=== PATIENT | female | born 1995 | race Caucasian/White ===

== ENCOUNTER → 2016-10-21 | Outpatient (CLI) | payer SELFPAY | LOC: RAD 10:57 | PROVIDERS: ATTEND Nurse Practitioner Women's Health | DX: Z34.81 Encounter for supervision of other normal pregnancy, first trimester (principal) | CPT/HCPCS: 76801 ==

== ENCOUNTER 2017-05-26 01:36 | Inpatient (IN) | payer MEDICAID ==
[2017-05-26] MEDS ORDERED: RINGERS SOLUTION,LACTATED 1,000 ML IV ONE (01:39)
[2017-05-26] MEDS ORDERED: ZOLPIDEM TARTRATE 5 MG TABLET PO PRN ×2 (02:02→16:42)
[2017-05-26] MEDS ORDERED: ACETAMINOPHEN 325 MG TABLET PO PRN ×2 (02:02→16:42)
[2017-05-26] MEDS ORDERED: DINOPROSTONE 10 MG VAGINAL INSERT.SR PV ONE ×2 (02:02→16:42)
[2017-05-26 02:15] LABS: ABSOLUTE LYMPHOCYTES (AUTO) 2.3 10^3/uL (0.5-4.7); ABSOLUTE MONOCYTES (AUTO) 0.4 10^3/uL (0.1-1.4); ABSOLUTE NEUT (AUTO) 5.6 10^3/uL (1.7-8.2); BASOPHILS % (AUTO) 0.2 % (0-2); EOSINOPHILS % (AUTO) 0.4 % (0-6); HEMATOCRIT 30.1 % (36.0-47.0); HEMOGLOBIN 10.8 g/dL (12.0-15.5); HGB HCT DIFFERENCE 2.3; LYMPHOCYTES % (AUTO) 27.5 % (13-45); MEAN CORPUSCULAR HEMOGLOBIN 31.8 pg (27.0-33.4); MEAN CORPUSCULAR VOLUME 88 fl (80-97); MONOCYTES % (AUTO) 5.2 % (3-13); RED BLOOD COUNT 3.41 10^6/uL (3.72-5.28); RED CELL DISTRIBUTION WIDTH 13.8 % (11.5-14.0); SEGMENTED NEUTROPHILS % (AUTO) 66.7 % (42-78); WHITE BLOOD COUNT 8.4 10^3/uL (4.0-10.5)
[2017-05-26 02:18] LABS: APPEARANCE,URINE CLOUDY; BILIRUBIN,URINE NEGATIVE (NEGATIVE); GLUCOSE, URINE NEGATIVE (NEGATIVE); KETONES,URINE NEGATIVE (NEGATIVE); LEUKOCYTE ESTERASE,URINE NEGATIVE (NEGATIVE); NITRITE,URINE NEGATIVE (NEGATIVE); PROTEIN,URINE NEGATIVE (NEGATIVE); UROBILINOGEN,URINE NEGATIVE mg/dL (<2.0)
[2017-05-26 02:32] LABS: URINE BARBITURATES SCREEN NEGATIVE; URINE METHADONE SCREEN NEGATIVE; URINE OPIATES LOW NEGATIVE; URINE PHENCYCLIDINE SCREEN NEGATIVE
[2017-05-26] MEDS ORDERED: DINOPROSTONE 10 MG VAGINAL INSERT.SR ONE ×2 (02:59→21:17)
[2017-05-26] MEDS: RINGERS SOLUTION,LACTATED 1,000 ML IV PRN ×2 (03:04→21:20)
[2017-05-26] MEDS ORDERED: ACETAMINOPHEN 325 MG TABLET ONE (03:09)
[2017-05-26] MEDS: MAG HYDROX/AL HYDROX/SIMETH SUSP 30 ML UDCUP PO PRN ×2 (03:12→21:19)
[2017-05-26] MEDS ORDERED: MAG HYDROX/AL HYDROX/SIMETH SUSP 30 ML UDCUP ONE ×2 (03:15→21:18)
--- NOTE | 2017-05-26 12:43 | L&D Progress Notes ---
PROGRESS NOTES Datetime Report Generated by CPN: 05/26/2017 12:43 PROGRESS NOTE Impression: Reassuring Heart Rate Plan: Continue Present Management; Induction; Cervical Ripening Vital Signs : Reviewed; Within Normal Limits Comment: Cat 1 strip, uc's q 2-3 min x 50-60 sec, doing well, starting to feel cramping, cervidil out at 3 DrYanni Campos aware of status VAGINAL EXAM Dilatation: 0 Effacement: 0 Station: -3 MEMBRANES Pooling: Negative Membranes: Intact FETUS A FHR - Baseline: 155 Variability: Moderate 6-25bpm Accelerations: 15X15 Decelerations: None FHR Category: Category I : 41.3 Estimated Weight (gm): 4000 Presentation: Vertex SIGNATURE SIGNATURE: [id number] Assignment: Quinton Campos MD Signature: with User ID: [email or web address] : with User ID: [email or web address]
--- NOTE | 2017-05-26 14:22 | L&D Progress Notes ---
PROGRESS NOTES Datetime Report Generated by CPN: 05/26/2017 14:22 PROGRESS NOTE Impression: Reassuring Heart Rate Plan: Continue Present Management Vital Signs : Reviewed; Within Normal Limits Comment: pt comfortable, irreg uc's, Cat 1 strip FETUS A Monitoring: External US Decelerations: None : 41.3 FETUS C SIGNATURE: [id number] Assignment: Quinton Campos MD Signature: with User ID: [email or web address] : with User ID: [email or web address]
[2017-05-26] MEDS ORDERED: OXYTOCIN/NORMAL SALINE 20 UNIT/1,000 ML RTUINJ IV PRN (16:42)
[2017-05-26] MEDS ORDERED: MAG HYDROX/AL HYDROX/SIMETH SUSP 30 ML UDCUP PO PRN (16:42)
[2017-05-27] MEDS ORDERED: ZOLPIDEM TARTRATE 5 MG TABLET ONE (00:35)
[2017-05-27] MEDS ORDERED: ONDANSETRON 4 MG TAB.RAPDIS PO ONE (09:01)
[2017-05-27] MEDS ORDERED: NALBUPHINE HCL INJ 10 MG/1 ML AMPULE IV ONE (09:12)
[2017-05-27] MEDS ORDERED: NALBUPHINE HCL INJ 10 MG/1 ML AMPULE ONE (09:17)
--- NOTE | 2017-05-27 09:36 | L&D Progress Notes ---
PROGRESS NOTES Datetime Report Generated by CPN: 05/27/2017 09:35 PROGRESS NOTE Procedures- Other: hughes bulb mechanical dilation Plan Other: low dose pit/mechanical dilation Vital Signs : Reviewed Comment: Hughes bulb introduced through cervix and filled with 40 cc saline. Placed to weighted saline bag. Will start pit at 2 mu until hughes bulb expelled. FETUS A FHR Category: Category I FETUS C SIGNATURE: [id number] Signature: with User ID: [email or web address]
[2017-05-27] MEDS ORDERED: OXYTOCIN/NORMAL SALINE 20 UNIT/1,000 ML RTUINJ IV PRN (09:41)
[2017-05-27] MEDS ORDERED: OXYTOCIN/NORMAL SALINE 20 UNIT/1,000 ML RTUINJ ONE (09:46)
[2017-05-27] MEDS ORDERED: ONDANSETRON 4 MG TAB.RAPDIS ONE (09:59)
[2017-05-27] MEDS ORDERED: EPHEDRINE SULFATE INJ 50 MG/1 ML AMPULE ONE (16:52)
[2017-05-27] MEDS ORDERED: BUPIVACAINE HCL 0.25 % INJ/PF (2.5 MG/1 ML) 30 ML VIAL ONE (16:53)
[2017-05-27] MEDS ORDERED: FENTANYL/BUPIVACAINE/NS/PF 200 MCG/100 ML RTUINJ EPI ONE (16:53)
--- NOTE | 2017-05-27 18:37 | L&D Progress Notes ---
PROGRESS NOTES Datetime Report Generated by CPN: 05/27/2017 18:37 PROGRESS NOTE Procedures: Artificial ROM Plan: Induction Informed Consent Obtained: Vaginal Delivery; Section Delivery Comment: Pt had some lates after epidural which resolved with ephedrine, d/c pit, and oxygen. AROM-thick mec...will resume pit if not having adequate ctxs. FETUS C SIGNATURE: [id number] Signature: with User ID: [email or web address]
[2017-05-27] MEDS ORDERED: LANSOPRAZOLE 30 MG TAB.RAP.DR ONE (19:05)
--- NOTE | 2017-05-27 23:22 | L&D Progress Notes ---
PROGRESS NOTES Datetime Report Generated by CPN: 05/27/2017 23:22 PROGRESS NOTE Procedures: Sterile Vag Exam Plan: Induction Comment: some caput noted. cont pit induction..pt comfortable with epidural. FETUS A FHR Category: Category I FETUS C SIGNATURE: [id number] Signature: with User ID: [email or web address]
[2017-05-28] MEDS ORDERED: FENTANYL/BUPIVACAINE/NS/PF 200 MCG/100 ML RTUINJ EPI ONE ×2 (01:47→08:51)
[2017-05-28] MEDS ORDERED: ACETAMINOPHEN 325 MG TABLET PO PRN (03:36)
[2017-05-28] MEDS ORDERED: ACETAMINOPHEN 325 MG TABLET ONE ×2 (03:42→11:05)
--- NOTE | 2017-05-28 05:51 | L&D Progress Notes ---
PROGRESS NOTES Datetime Report Generated by CPN: 05/28/2017 05:50 PROGRESS NOTE Procedures: Intrauterine Pressure Catheter Plan: Induction Comment: large amt of caput. Few variables on FHR tracing but good variablity ...cont induction guided by mvus. VAGINAL EXAM Dilatation: 7 Effacement: 100 Station: 0 FETUS C SIGNATURE: [id number] Signature: with User ID: [email or web address]
[2017-05-28] MEDS ORDERED: LIDOCAINE 1% INJ-PF (10 MG/ML) 30 ML SDV ONE (08:43)
[2017-05-28] MEDS ORDERED: MISOPROSTOL 0.2 MG TABLET ONE (08:43)
[2017-05-28] MEDS ORDERED: ACETAMINOPHEN 325 MG TABLET PO ONE (11:00)
[2017-05-28] MEDS ORDERED: OXYTOCIN/NORMAL SALINE 20 UNIT/1,000 ML RTUINJ ONE ×2 (11:25→13:14)
[2017-05-28] MEDS ORDERED: METHYLERGONOVINE MALEATE INJ/PF 0.2 MG/1 ML AMPULE ONE (12:20)
[2017-05-28] MEDS ORDERED: DIPH/PERTUSS(ACELL)/TETANUS VAC/PF 0.5 ML SYR (>=10YO) IM PRN (12:41)
[2017-05-28] MEDS ORDERED: DIPHENHYDRAMINE HCL 25 MG CAPSULE PO PRN (12:41)
[2017-05-28] MEDS ORDERED: PSEUDOEPHEDRINE HCL 30 MG TABLET PO PRN (12:41)
[2017-05-28] MEDS ORDERED: PROMETHAZINE HCL 25 MG SUPP.RECT PR PRN (12:41)
[2017-05-28] MEDS ORDERED: NA PHOS,M-B/NA PHOS,DI-BA (ADULT) 133 ML ENEMA PR PRN (12:41)
[2017-05-28] MEDS ORDERED: METHYLERGONOVINE MALEATE INJ/PF 0.2 MG/1 ML AMPULE IM PRN (12:41)
[2017-05-28] MEDS ORDERED: GLYCERIN/WITCH HAZEL LEAF 1 EACH MED..PAD TP PRN (12:41)
[2017-05-28] MEDS ORDERED: MAGNESIUM HYDROXIDE SUSP 30 ML UDCUP PO PRN (12:41)
[2017-05-28] MEDS ORDERED: MISOPROSTOL 0.2 MG TABLET PR PRN (12:41)
[2017-05-28] MEDS ORDERED: DIBUCAINE 1% OINTMENT 28 GM TP PRN (12:41)
[2017-05-28] MEDS ORDERED: ACETAMINOPHEN 650 MG SUPP.RECT PR PRN (12:41)
[2017-05-28] MEDS ORDERED: OXYTOCIN/NORMAL SALINE 20 UNIT/1,000 ML RTUINJ IV PRN (12:41)
[2017-05-28] MEDS ORDERED: PROMETHAZINE HCL INJ 25 MG/1 ML VIAL IV PRN (12:41)
[2017-05-28] MEDS ORDERED: PROMETHAZINE HCL 25 MG TABLET PO PRN (12:41)
[2017-05-28] MEDS ORDERED: ACETAMINOPHEN WITH CODEINE #3 TABLET PO PRN ×2 (12:41)
[2017-05-28] MEDS ORDERED: BENZOCAINE/MENTHOL AEROSOL SPRAY 56 ML TOP PRN (12:41)
[2017-05-28] MEDS ORDERED: MEASLES,MUMPS&RUBELLA VACC/PF 0.5 ML VIAL SUBCUT PRN (12:41)
[2017-05-28] MEDS ORDERED: OXYCODONE HCL IR 5 MG TABLET PO ONE (12:44)
[2017-05-28] MEDS ORDERED: CEFAZOLIN 2 GM/D5W RTU 2 GM/50 ML RTUPB IV SCH (12:45)
[2017-05-28] MEDS ORDERED: OXYCODONE HCL IR 5 MG TABLET ONE (12:46)
[2017-05-28] MEDS ORDERED: ONDANSETRON 4 MG TAB.RAPDIS PO ONE (12:47)
[2017-05-28] MEDS ORDERED: CEFAZOLIN 2 GM/D5W RTU 2 GM/50 ML RTUPB IV ONE ×2 (12:47→12:51)
[2017-05-28] MEDS ORDERED: ONDANSETRON 4 MG TAB.RAPDIS ONE (12:49)
[2017-05-28 12:57] LABS: ARTERIAL BLOOD BASE EXCESS -8.8 mmol/L; ARTERIAL BLOOD O2 SATURATION 67.7 % (94-98)
[2017-05-28] MEDS ORDERED: NALBUPHINE HCL INJ 10 MG/1 ML AMPULE INJ ONE (13:04)
[2017-05-28] MEDS ORDERED: NALBUPHINE HCL INJ 10 MG/1 ML AMPULE ONE (13:10)
[2017-05-28] MEDS ORDERED: HYDROCODONE/ACETAMINOPHEN 10-325 MG TABLET PO ONE (13:30)
[2017-05-28] MEDS ORDERED: MORPHINE SULFATE 10 MG/ML INJ IV ONE (13:44)
[2017-05-28] MEDS ORDERED: MORPHINE SULFATE 10 MG/ML INJ ONE (13:51)
[2017-05-28 13:59] LABS: HEMATOCRIT 29.1 % (36.0-47.0); HEMOGLOBIN 10.3 g/dL (12.0-15.5); HGB HCT DIFFERENCE 1.8; MEAN CORPUSCULAR HEMOGLOBIN 31.5 pg (27.0-33.4); MEAN CORPUSCULAR HGB CONC 35.3 g/dL (32.0-36.0); MEAN CORPUSCULAR VOLUME 89 fl (80-97); RED BLOOD COUNT 3.27 10^6/uL (3.72-5.28); RED CELL DISTRIBUTION WIDTH 13.7 % (11.5-14.0)
[2017-05-28 14:01] LABS: WHITE BLOOD COUNT 21.7 10^3/uL (4.0-10.5)
[2017-05-28] MEDS: IBUPROFEN 800 MG TABLET PO SCH ×2 (14:42→21:08)
[2017-05-28] MEDS ORDERED: IBUPROFEN 800 MG TABLET ONE (14:45)
--- NOTE | 2017-05-28 14:51 | Delivery Summary ---
Del Sum A-C Datetime Report Generated by CPN: 05/28/2017 14:50 DELIVERY PERSONNEL DELIVERY PERSONNEL: [id number] Delivery Doctor:: Soila Myers CNM Labor and Delivery Nurse:: Indigo Velasquez RNrevenue cycle specialist Nurse:: Anabella Quintero RN Humanities Professor:: Indigo Velasquez RN Nursery Nurse:: Kenzie Shin RN Nursery Nurse:: Mikki Medina RN Mission Commander/PORCELAIN ENAMEL REPAIRER: Sylvia Gil, [place] Mission Commander/PORCELAIN ENAMEL REPAIRER: Jeff Luis, ST MATERNAL INFORMATION Delivery Anesthesia: Epidural Medications After Delivery: Pitocin Bolus-Please Comment Meds After Delivery Comment: Pitocin 20 units in 1 L NS bolusing per order Estimated Blood Loss (ml): 400 Maternal Complications: Chorioamnionitis Provider Comments: pt pushing, on perineum for a extended period, HR down ML epis made, viable female from OA to TILA over thick meconium, nuchal cord x 1 loose and loop of occult cord around neck, placed on mothers abd, nursery in attendance, suctioned Spont delivery of small meconium stained placenta, 3 vc, EBL 400cc, temp 100, stromg foul odor, + chorio Cytotec 1000mcg via rectum, Methergine 0.2 mg IM, massage, IV Pitocin Rt labial lac and ML epis repaired without difficulty, cervix intact, rectum patent will give mother Ancef 2 gms IV x 1 Placenta cultured x 2, cord gases and placenta to path, baby and mom remain in recovery in stable condition (Annotations: Data stored by CPN on behalf of user) LABOR SUMMARY EDC: 05/16/2017 00:00 No. Babies in Womb: 1 Attempted: No Labor Anesthesia: Epidural LABOR INFORMATION Reason for Induction: Post Dates Onset of Labor: 05/27/2017 18:30 Complete Dilatation: 05/28/2017 10:01 Cervical Ripening Agents: Cervidil Oxytocin: Induction Group B Beta Strep: Negative Antibiotics # of Doses: 0 Antibiotics Time of Last Dose: n/a Name of Antibiotic Given: n/a Steroids Given: None Reason Steroids Not Administered: Not Applicable MEMBRANES Membranes Rupture Method: Artificial Rupture of Membranes: 05/27/2017 18:30 Length of Rupture (hr): 17.55 Amniotic Fluid Color: Heavy Meconium Amniotic Fluid Amount: Small Amniotic Fluid Odor: Normal STAGES OF LABOR Stage 1 hr: 15 Stage 1 min: 31 Stage 2 hr: 2 Stage 2 min: 2 Stage 3 hr: 0 Stage 3 min: 9 Total Time in Labor hr: 17 Total Time in Labor min: 42 VAGINAL DELIVERY Episiotomy: Median Laceration Extension: First Degree Laceration Type: Periurethral Other Laceration: Right periurethral Laceration Repair: Yes Laceration Repair Note: lac and epis repaired in normal fashion without difficulty Sponge Count Correct: N/A Sharps Count Correct: N/A CSECTION DELIVERY Primary Indication: N/A Secondary Indication: N/A CSection Incidence: N/A Labor: N/A Elective: N/A CSection Incision: N/A BABY A INFORMATION Delivery Date/Time: 05/28/2017 12:03 Method of Delivery: Vaginal Born in Route : No : N/A Forceps: N/A Vacuum Extraction: N/A Shoulder Dystocia : No PRESENTATION/POSITION BABY A Presentation: Cephalic Cephalic Presentation: Vertex Vertex Position: Left Occipital Anterior Breech Presentation: N/A PLACENTA INFORMATION BABY A Placenta Delivery Time : 05/28/2017 12:12 Placenta Method of Delivery: Spontaneous Placenta Status: Delivered SCORES BABY A Heart Rate 1 min: >100 bpm Resp Effort 1 min: Good Cry Reflex Irritability 1 min: Cough or Sneeze or Pulls Away Muscle Tone 1 min: Some Flexion of Extremities Color 1 min: Blue/Pale Resuscitation Effort 1 min: Tactile Stimulation SCORE 1 MIN: 7 Heart Rate 5 min: >100 bpm Resp Effort 5 min: Good Cry Reflex Irritability 5 min: Cough or Sneeze or Pulls Away Muscle Tone 5 min: Active Motion Color 5 min: Body [place], Extremities Blue Resuscitation Effort 5 min: Tactile Stimulation SCORE 5 MIN: 9 INFANT INFORMATION BABY A Gestational Age at Delivery: 41.5 Gestational Status: Late Term- 41- 41.6 Weeks Infant Outcome : Liveborn Infant Condition : Stable Sex: Female IDENTIFICATION BABY A Infant Verification Date/Time: 05/28/2017 12:41 ID Band Number: [id number] Mother's Name Verified: Yes Infant RN Verifying Infant: Anibal Irwin RNC Additional Verifying Personnel: Juan English RN WEIGHT/LENGTH BABY A Infant Birthweight (gm): 2880 Infant Weight (lb): 6 Weight (oz): 6 Length (in): 20.75 Length (cm): 52.71 CORD INFORMATION BABY A No. Cord Vessels: 3 Nuchal Cord : Around Neck x1, Loose Cord Blood Taken: Yes-For Eval (Mom's Blood Type - or O+) Suction: Mouth; Nose ASSESSMENT BABY A Complications: Decreased Variability; Extended Tachycardia; Multiple Late Decels; Multiple Variable Decels; Meconium Physical Findings at Delivery: Caput Succedaneum; Molding of the Head Infant Respirations: Appears Normal Skin to Skin: Yes Landscape Architect/ALS Called : No Care By: Leonila Betancourt RN Transferred To: Remains with Mother BABY B INFORMATION : N/A
--- NOTE | 2017-05-28 15:58 | Admission Physical ---
Datetime Report Generated by CPN: 05/28/2017 15:57 CURRENT ADMISSION Chief Complaint: Scheduled Induction of Labor Indication for Induction: Post Dates Admit Plan: Admit to Unit; Initiate Labor Induction Protocol ALLERGIES Medication Allergies: No Medication Allergies: No Known Allergies (05/26/2017) Medication Allergies: No Known Allergies (07/12/2014) Latex: No Latex Allergies Food Allergies: None Environmental Allergies: None OBSTETRICAL HISTORY EDC: 05/16/2017 00:00 : 2 Para: 0 Term: 0 : 0 SAB: 1 IAB: 0 Ectopic: 0 Livin Cesareans: 0 VBACs: 0 Multiple Births: 0 Gestational Diabetes: No Rh Sensitization: No Incompetent Cervix: No LUIS ARMANDO: No Infertility: No ART Treatment: No Uterine Anomaly: No IUGR: No Hx Previous C/S: No Macrosomia: No Hx Loss/Stillborn: No PIH: No Hx : No Placenta Previa/Abruption: No Depression/PP Depression: No PTL/PROM: No Post Hemorrhage: No Obstetrical History Comments: G1- miscarriage G2: Current SEE RECORDS Alcohol: No Marijuana : No Cocaine: No Other Illicit Drugs: No Cigarettes: Never Smoker. [id number] MEDICAL HISTORY Diabetes: No Blood Transfusion: No Pulmonary Disease (Asthma, TB): No Breast Disease: No Hypertension: No Dyer Assistant Surgery: No Heart Disease: No Hosp/Surgery: No Autoimmune Disorder: No Anesthetic Complications: No Kidney Disease: No Abnormal Pap Smear: Yes Neuro/Epilepsy: No Psychiatric Disorders: Yes Other Medical Diseases: No Hepatitis/Liver Disease: No Significant Family History: No Varicosities/Phlebitis: No Trauma/Violence : No Thyroid Dysfunction: No Medical History Comments: anxiety; ASCUS pap +HPV INFECTIOUS HISTORY Gonorrhea: No Genital Herpes: No Chlamydia: Yes Tuberculosis: No Syphilis: No Hepatitis: No HIV/AIDS Exposure: No Rash or Viral Illness: No HPV: No Infectious History Comments: Hx of chlamydia PHYSICAL EXAM General: Normal HEENT: Normal Neurologic: Normal Thyroid: Normal Heart: Normal Lungs: Normal Breast: Normal Back: Normal Abdomen: Normal Genitourinary Exam: Normal Extremities: Normal DTRs: Normal Pelvic Type: Adequate Vital Signs: Reviewed VAGINAL EXAM Dilatation: 7 Dilatation: 0 Effacement: 100 Effacement: 0 Station: 0 Station: -3 MEMBRANES Pooling: Negative Membranes: Intact FETUS A EGA: 41.3 Monitoring: External US FHR- Baseline: 130 Variability: Moderate 6-25bpm Accelerations: 15X15 Decelerations: None FHR Category: Category I Estimated Weight (gm): 4000 Presentation: Vertex PLANS FOR LABOR AND DELIVERY Labor and Delivery: None Pain Management: Epidural Feeding Preference: Breast Benefit of Breast Feed Discussed: Yes Circumcision: N/A INFORMED CONSENT Informed Consent Obtained: Vaginal Delivery; Section Delivery Signature: with User ID: [email or web address]
[2017-05-28] MEDS: FERROUS SULFATE 325 MG TABLET PO SCH (17:22)
[2017-05-28] MEDS: DOCUSATE SODIUM 100 MG CAPSULE PO SCH (17:23)
[2017-05-28] MEDS: CEFAZOLIN 2 GM/D5W RTU 2 GM/50 ML RTUPB IV SCH ×2 (17:24→23:29)
[2017-05-28] MEDS: CEPHALEXIN 500 MG CAPSULE PO SCH (21:09)
[2017-05-28] MEDS: FAMOTIDINE 20 MG TABLET PO SCH (21:09)
[2017-05-28] MEDS: METHYLERGONOVINE MALEATE 0.2 MG TABLET PO SCH (21:09)
[2017-05-29] MEDS: METHYLERGONOVINE MALEATE 0.2 MG TABLET PO SCH ×3 (02:14→16:38)
[2017-05-29] MEDS: CEFAZOLIN 2 GM/D5W RTU 2 GM/50 ML RTUPB IV SCH ×4 (05:54→23:54)
[2017-05-29] MEDS: CEPHALEXIN 500 MG CAPSULE PO SCH ×3 (05:54→21:14)
[2017-05-29] MEDS: IBUPROFEN 800 MG TABLET PO SCH ×3 (05:54→21:13)
[2017-05-29 07:40] LABS: HEMOGLOBIN 8.6 g/dL (12.0-15.5); HGB HCT DIFFERENCE 1.8; MEAN CORPUSCULAR HEMOGLOBIN 32.2 pg (27.0-33.4); MEAN CORPUSCULAR HGB CONC 35.9 g/dL (32.0-36.0); MEAN CORPUSCULAR VOLUME 90 fl (80-97); RED BLOOD COUNT 2.68 10^6/uL (3.72-5.28); RED CELL DISTRIBUTION WIDTH 14.2 % (11.5-14.0); WHITE BLOOD COUNT 10.9 10^3/uL (4.0-10.5)
--- NOTE | 2017-05-29 08:49 | PDOC PROGRESS REPORT ---
Subjective-OB Subjective: Post Delivery Day: 1 22 year old. Denies any needs at this time, states lochia is stable, pain is well controlled, voiding without difficulty. Physical Exam (OB) Vital Signs: Temp Pulse Resp BP Pulse Ox 98.1 F 82 16 107/68 100 05/28/17 23:35 05/28/17 23:35 05/28/17 23:35 05/28/17 23:35 05/28/17 19:27 Intake & Output 05/28/17 05/29/17 05/30/17 06:59 06:59 06:59 Intake Total 1045 Output Total 600 Balance 445 - Lochia Lochia Amount: Small 10-25 ml Lochia Color: Rubra/Red - Abdomen Description: Soft, Round Hernia Present: No Fundal Description: Firm, Midline Fundal Height: u/u - u/2 Objective-Diagnostic Laboratory: 05/29/17 07:01 05/28/17 05/28/17 05/29/17 12:04 13:44 07:01 WBC 21.7 H D 10.9 H RBC 3.27 L 2.68 L Hgb 10.3 L 8.6 L Hct 29.1 L 24.0 L MCV 89 90 MCH 31.5 32.2 MCHC 35.3 35.9 RDW 13.7 14.2 H Plt Count 204 192 Carbonic Acid 1.21 HCO3/H2CO3 Ratio 14:1 ABG pH 7.26 L ABG pCO2 40.2 ABG pO2 40.1 L* ABG HCO3 17.6 L ABG O2 Saturation 67.7 L ABG Base Excess -8.8 FiO2 CORD BLOOD Assessment and Plan(PN) - Assessment and Plan (1) Acute blood loss anemia Is this a current diagnosis for this admission?: Yes Plan: increase dietary iron ferrous sulfate. (2) Chorioamnionitis in third trimester Qualifiers: Fetus number: single or unspecified fetus Qualified Code(s): O41.1230 - Chorioamnionitis, third trimester, not applicable or unspecified Is this a current diagnosis for this admission?: Yes Plan: abx for 24 hours (3) Vaginal delivery Is this a current diagnosis for this admission?: Yes Plan: routine pp care anticipate d/c home tomorrow.
[2017-05-29] MEDS: PRENATAL VITAMIN W-O CA NO5/FE FUMARATE/FA CAPSULE PO SCH (10:08)
[2017-05-29] MEDS: DOCUSATE SODIUM 100 MG CAPSULE PO SCH ×2 (10:08→18:11)
[2017-05-29] MEDS: FAMOTIDINE 20 MG TABLET PO SCH ×2 (10:09→21:14)
[2017-05-29] MEDS: FERROUS SULFATE 325 MG TABLET PO SCH ×2 (10:09→18:11)
[2017-05-29] MEDS: SENNOSIDES/DOCUSATE 8.6-50 MG 1 EACH TABLET PO SCH (10:32)
[2017-05-30] MEDS: CEFAZOLIN 2 GM/D5W RTU 2 GM/50 ML RTUPB IV SCH ×2 (05:40→13:08)
[2017-05-30] MEDS: IBUPROFEN 800 MG TABLET PO SCH (05:54)
[2017-05-30] MEDS: CEPHALEXIN 500 MG CAPSULE PO SCH (05:54)
--- NOTE | 2017-05-30 09:55 | PDOC DISCHARGE SUMMARY ---
Final Diagnosis Discharge Date: 05/30/17 - Final Diagnosis (1) Acute blood loss anemia Is this a current diagnosis for this admission?: Yes (2) Chorioamnionitis in third trimester Is this a current diagnosis for this admission?: Yes (3) Vaginal delivery Is this a current diagnosis for this admission?: Yes Discharge Data - Discharge Medication Home Medications: Vit No.129/Iron/Folic [ One Daily Tablet] 1 each PO DAILY 05/26 Cephalexin Monohydrate [Keflex 500 mg Capsule] 500 mg PO Q8 #20 capsule Docusate Sodium [Colace 100 mg Capsule] 100 mg PO BID #60 capsule 05/30/17 Ferrous Sulfate [Feosol 325 mg Tablet] 325 mg PO BID #60 tablet 05/30/17 Ibuprofen [Motrin 800 mg Tablet] 800 mg PO Q8 #60 tablet 05/30/17 Gestational Age: 41.5 Reason(s) for Admission: Induction of Labor Procedures: NST Intrapartum Procedure(s): Spontaneous Vaginal Delivery Complication(s): Laceration-Perineal Laceration-Degree: 1st - [place] Data Baby 1 Female at 1 minute: 7 at 5 minutes: 9 Weight: 2880 kg Home with Mother: Yes Complications: No - Diagnosis Test Laboratory: Temp Pulse Resp BP Pulse Ox 98.1 F 77 16 120/60 100 05/30/17 08:58 05/30/17 08:58 05/30/17 08:58 05/30/17 08:58 05/30/17 08:58 05/26/17 05/26/17 05/28/17 01:58 02:03 13:44 RBC 3.41 L 3.27 L Hgb 10.8 L 10.3 L Hct 30.1 L 29.1 L Urine Opiates Screen NEGATIVE 05/29/17 07:01 RBC 2.68 L Hgb 8.6 L Hct 24.0 L Urine Opiates Screen - Discharge information/Instructions Discharge Activity: Activity As Tolerated, Pelvic Rest, No tub bath Discharge Diet: Regular Disposition: HOME, SELF-CARE Follow up with: [facility] in: 4, Weeks
[2017-05-30] MEDS: PRENATAL VITAMIN W-O CA NO5/FE FUMARATE/FA CAPSULE PO SCH (10:01)
[2017-05-30] MEDS: DOCUSATE SODIUM 100 MG CAPSULE PO SCH (10:02)
[2017-05-30] MEDS: FAMOTIDINE 20 MG TABLET PO SCH (10:02)
[2017-05-30] MEDS: SENNOSIDES/DOCUSATE 8.6-50 MG 1 EACH TABLET PO SCH (10:02)
[2017-05-30] MEDS: FERROUS SULFATE 325 MG TABLET PO SCH (10:03)
[2017-05-30 10:42] VITALS: BP 110/68
== END 2017-05-30 13:20 | disposition home or self-care (01) | DRG 775 ==
LOC: LR 01:36 → 2S 05-28 15:56
PROVIDERS: ADMIT Obstetrics & Gynecology; ATTEND Obstetrics & Gynecology
PROC: 10E0XZZ Delivery of Products of Conception, External Approach (ICD-10-PCS; principal; 2017-05-28)
PROC: 0W8NXZZ Division of Female Perineum, External Approach (ICD-10-PCS; 2017-05-28)
PROC: 0HQ9XZZ Repair Perineum Skin, External Approach (ICD-10-PCS; 2017-05-28)
DX: O48.0 Post-term pregnancy (principal); O41.1230 Chorioamnionitis, third trimester, not applicable or unspecified; D62 Acute posthemorrhagic anemia; O69.81X0 Labor and delivery complicated by cord around neck, without compression, not applicable or unspecified; O70.0 First degree perineal laceration during delivery; O77.0 Labor and delivery complicated by meconium in amniotic fluid; O76 Abnormality in fetal heart rate and rhythm complicating labor and delivery; O90.81 Anemia of the puerperium; R87.810 Cervical high risk human papillomavirus (HPV) DNA test positive; R87.610 Atypical squamous cells of undetermined significance on cytologic smear of cervix (ASC-US); Z37.0 Single live birth; Z3A.41 41 weeks gestation of pregnancy
CPT/HCPCS: 36415; 80307; 81005; 82803; 85025; 85027; 86592; 86850; 86900; 86901; 87070; 87075; 87077; 87205; 88307; J0690; J2210; J2270; J2300; J2590; J3490; S0119

== ENCOUNTER → 2018-04-27 | Outpatient (CLI) | payer MEDICAID ==
[2018-04-27 13:32] LABS: ABSOLUTE LYMPHOCYTES (AUTO) 1.6 10^3/uL (0.5-4.7); ABSOLUTE MONOCYTES (AUTO) 0.3 10^3/uL (0.1-1.4); ABSOLUTE NEUT (AUTO) 3.8 10^3/uL (1.7-8.2); BASOPHILS % (AUTO) 0.3 % (0-2); EOSINOPHILS % (AUTO) 0.8 % (0-6); HEMOGLOBIN 14.2 g/dL (12.0-15.5); LYMPHOCYTES % (AUTO) 28.1 % (13-45); MEAN CORPUSCULAR HEMOGLOBIN 31.3 pg (27.0-33.4); MEAN CORPUSCULAR HGB CONC 35.5 g/dL (32.0-36.0); MEAN CORPUSCULAR VOLUME 88 fl (80-97); MONOCYTES % (AUTO) 5.3 % (3-13); PLATELET COUNT 308 10^3/uL (150-450); RED BLOOD COUNT 4.55 10^6/uL (3.72-5.28); RED CELL DISTRIBUTION WIDTH 12.9 % (11.5-14.0); SEGMENTED NEUTROPHILS % (AUTO) 65.5 % (42-78); TOTAL CELLS COUNTED % (AUTO) 100 %; WHITE BLOOD COUNT 5.8 10^3/uL (4.0-10.5)
[2018-04-27 14:06] LABS: ALANINE AMINOTRANSFERASE 45 U/L (9-52); ALBUMIN 4.3 g/dL (3.5-5.0); ALKALINE PHOSPHATASE 89 U/L (38-126); ANION GAP 13 (5-19); ASPARTATE AMINO TRANSFERASE 28 U/L (14-36); BILIRUBIN,DIRECT 0.3 mg/dL (0.0-0.4); BILIRUBIN,TOTAL 0.4 mg/dL (0.2-1.3); BLOOD UREA NITROGEN 8 mg/dL (7-20); CALCIUM 9.3 mg/dL (8.4-10.2); CARBON DIOXIDE 22 mmol/L (22-30); CHLORIDE 109 mmol/L (98-107); GLUCOSE 80 mg/dL (75-110); POTASSIUM 4.1 mmol/L (3.6-5.0); SODIUM 143.6 mmol/L (137-145); TOTAL PROTEIN 7.8 g/dL (6.3-8.2)
[2018-04-27 14:20] LABS: FREE T4 (FREE THYROXINE) 0.97 ng/dL (0.78-2.19)
[2018-04-27 14:34] LABS: THYROID STIMULATING HORMONE 1.93 uIU/mL (0.47-4.68)
== END ==
LOC: OD 12:17
PROVIDERS: ATTEND Nurse Practitioner Psychiatric/Mental Health
DX: F43.23 Adjustment disorder with mixed anxiety and depressed mood (principal)
CPT/HCPCS: 36415; 80053; 84439; 84443; 85025

== ENCOUNTER 2019-05-03 08:06 | Emergency (ER) | payer SELFPAY ==
[2019-05-03 08:12] VITALS: BP 123/59
--- NOTE | 2019-05-03 09:38 | ER Document Report ---
HPI - HPI Time Seen by Provider: 05/03/19 09:14 Pain Level: 2 Notes: Patient is an otherwise healthy 24-year-old female presenting to the emergency department chief complaint of concern for rash. Patient reports she has had a scattered rash across her legs and ankles for several weeks now. Patient reports that she thinks they may be scabies. Patient has not tried any medication to remedy this. - CONSTITUTIONAL Constitutional: DENIES: Fever, Chills - EENT EENT: DENIES: Sore Throat, Ear Pain, Eye problems - NEURO Neurology: DENIES: Headache, Weakness, Vision blurred, Dizzinesss / Vertigo - CARDIOVASCULAR Cardiovascular: DENIES: Chest pain - RESPIRATORY Respiratory: DENIES: Trouble Breathing, Coughing - GASTROINTESTINAL Gastrointestinal: DENIES: Abdominal Pain, Black / Bloody Stools - URINARY Urinary: DENIES: Dysuria, Urgency, Frequency - REPRODUCTIVE Reproductive: DENIES: : - MUSCULOSKELETAL Musculoskeletal: DENIES: Extremity pain Past Medical History - General Information source: Patient - Social History Smoking Status: Never Smoker Frequency of alcohol use: Occasional Drug Abuse: None Family History: Reviewed & Not Pertinent Patient has suicidal ideation: No Patient has homicidal ideation: No Renal/ Medical History: Denies: Hx Peritoneal Dialysis Psychiatric Medical History: Reports: Hx Anxiety - panic attacks Traumatic Medical History: Reports: Hx Fractures - nose Surgical Hx: Negative - Immunizations Immunizations up to date: Yes Hx Diphtheria, Pertussis, Tetanus Vaccination: Yes Vertical Provider Document - CONSTITUTIONAL Notes: PHYSICAL EXAMINATION: GENERAL: Well-appearing, well-nourished and in no acute distress. HEAD: Atraumatic, normocephalic. EYES: Pupils equal round extraocular movements intact, conjunctiva are normal. ENT: Nares patent NECK: Normal range of motion LUNGS: No respiratory distress Musculoskeletal: Normal range of motion NEUROLOGICAL: Normal speech, normal gait. PSYCH: Normal mood, normal affect. SKIN: Linear rash noted to patient's left ankle, scattered rash noted to pat chapisnt's bilateral legs. - INFECTION CONTROL TRAVEL OUTSIDE OF THE [place] IN LAST 30 DAYS: No Course - Re-evaluation Re-evalutation: One area of patient's rash is consistent with possible scabies. Patient also has other areas of pruritus without evidence of rash. Will start patient on medications for her symptoms and treat for scabies. Recommended patient follow- up with dermatology if treatment does not improve symptoms. - Vital Signs Vital signs: Temp Pulse Resp BP Pulse Ox 98.0 F 66 18 123/59 L 100 05/03/19 08:11 05/03/19 08:11 05/03/19 08:11 05/03/19 08:11 05/03/19 08:11 Discharge - Discharge Clinical Impression: Rash and nonspecific skin eruption, puritis Condition: Stable Disposition: HOME, SELF-CARE Additional Instructions: You were seen in the emergency department today for rash. The rash on your ankle does appear to be consistent with scabies. It is unclear what is causing the itching on your legs however. Please take the medications as prescribed. If the Atarax is too expensive you may also take Benadryl in place of it. If your symptoms do not improve over the next 3 to 5 days please follow-up with dermatology. Do not take hot showers. Prescriptions: Hydroxyzine HCl [Atarax 25 mg Tablet] 1 - 2 tab PO QID #20 tablet Permethrin [Nix 1% Lotion 59 ml] 1 applic TP ONCE #1 bottle Prednisone 10 mg PO ASDIR PRN #21 tablet PRN Reason: Referrals: CARLA ANTUNEZ NP [NO LOCAL MD] - Follow up as needed
== END 2019-05-03 09:53 | disposition home or self-care (01) ==
LOC: ER 08:06
DX: R21 Rash and other nonspecific skin eruption (principal); L29.9 Pruritus, unspecified
CPT/HCPCS: 99282

== ENCOUNTER 2019-05-23 19:05 | Emergency (ER) | payer SELFPAY ==
[2019-05-23 19:39] VITALS: BP 126/68
--- NOTE | 2019-05-23 21:06 | ER Document Report ---
ED Skin Rash/Insect Bite/Abscs - General Chief Complaint: Rash Stated Complaint: RASH, ITCHING Time Seen by Provider: 05/23/19 20:27 Mode of Arrival: Ambulatory Information source: Patient Notes: 24-year-old healthy female presented to ED for rash to the arms and legs some between the toes. It does appear to be scabies. She was treated for scabies recently but she states she did not clean the linens or vacuum because she did not have a vacuum. Her child is here with the same rash. Patient states she continues to itch. There are no some new areas that were not there last time she was seen she stated. TRAVEL OUTSIDE OF THE [place] IN LAST 30 DAYS: No - HPI Patient complains to provider of: Skin rash/lesion Onset: Other - Since 05/02/2019 Onset/Duration: Waxing and waning Severity: None Pain Level: Denies Skin Character: Rash Quality of rash: Itchy Identify cause: Yes Exacerbated by: Denies Relieved by: Denies Similar symptoms previously: Yes Recently seen / treated by doctor: Yes - Related Data Allergies/Adverse Reactions: No Known Allergies Allergy (Verified 05/23/19 19:10) Past Medical History - General Information source: Patient - Social History Smoking Status: Former Smoker Frequency of alcohol use: Occasional Drug Abuse: None Lives with: Family Family History: Reviewed & Not Pertinent Patient has suicidal ideation: No Patient has homicidal ideation: No - Past Medical History Cardiac Medical History: Reports: None Pulmonary Medical History: Reports: None EENT Medical History: Reports: None Neurological Medical History: Reports: None Endocrine Medical History: Reports: None Renal/ Medical History: Reports: None Malignancy Medical History: Reports: None GI Medical History: Reports: None Musculoskeletal Medical History: Reports None Skin Medical History: Reports None Psychiatric Medical History: Reports: Hx Anxiety - panic attacks Traumatic Medical History: Reports: Hx Fractures - nose Infectious Medical History: Reports: None Surgical Hx: Negative Past Surgical History: Reports: None - Immunizations Immunizations up to date: Yes Hx Diphtheria, Pertussis, Tetanus Vaccination: Yes Review of Systems - Review of Systems Constitutional: No symptoms reported EENT: No symptoms reported Cardiovascular: No symptoms reported Respiratory: No symptoms reported Gastrointestinal: No symptoms reported Genitourinary: No symptoms reported Female Genitourinary: No symptoms reported Musculoskeletal: No symptoms reported Skin: Rash Hematologic/Lymphatic: No symptoms reported Neurological/Psychological: No symptoms reported -: Yes All other systems reviewed and negative Physical Exam - Vital signs Vitals: Temp Pulse Resp BP Pulse Ox 98.9 F 93 16 126/68 H 97 05/23/19 19:33 05/23/19 19:33 05/23/19 19:33 05/23/19 19:33 05/23/19 19:33 Interpretation: Normal - General General appearance: Appears well, Alert - HEENT Head: Normocephalic, Atraumatic Eyes: Normal Pupils: PERRL - Respiratory Respiratory status: No respiratory distress Chest status: Nontender Breath sounds: Normal Chest palpation: Normal - Cardiovascular Rhythm: Regular Heart sounds: Normal auscultation Murmur: No - Abdominal Inspection: Normal Distension: No distension Bowel sounds: Normal Tenderness: Nontender Organomegaly: No organomegaly - Back Back: Normal, Nontender - Extremities General upper extremity: Normal inspection, Nontender, Normal color, Normal ROM, Normal temperature General lower extremity: Normal inspection, Nontender, Normal color, Normal ROM, Normal temperature, Normal weight bearing. No: Emanuel's sign - Neurological Neuro grossly intact: Yes Cognition: Normal Orientation: AAOx4 Keily Coma Scale Eye Opening: Spontaneous Keily Coma Scale Verbal: Oriented Keily Coma Scale Motor: Obeys Commands Keily Coma Scale Total: 15 Speech: Normal Motor strength normal: LUE, RUE, LLE, RLE Sensory: Normal - Psychological Associated symptoms: Normal affect, Normal mood - Skin Skin Temperature: Warm Skin Moisture: Dry Skin Color: Normal Location of irregularity: Extremities Character of irregularity: Maculopapular, Linear, Erythematous Course - Re-evaluation Re-evalutation: 05/24/19 03:36 Patient was given a repeat treatment for her scabies. She was instructed that she really needed to follow-up with dermatology if this rash continued. She does have several areas that do look like scabies in the station. She states a couple of these are new from before. Patient's child is also have scabies infestation to the arms and legs and waist. Patient was given strict instructions about housekeeping chores that need to be done after being treated for the scabies. She stated she would make sure that she got a vacuum and clean the house this time. Patient was discharged home after she verbalized understanding and agreement with treatment plan. - Vital Signs Vital signs: Temp Pulse Resp BP Pulse Ox 98.9 F 93 16 126/68 H 97 05/23/19 19:33 05/23/19 19:33 05/23/19 19:33 05/23/19 19:33 05/23/19 19:33 Discharge - Discharge Clinical Impression: Scabies Condition: Stable Disposition: HOME, SELF-CARE Instructions: Family Physicians / Practices Additional Instructions: Scabies Your exam suggests the presence of scabies, which are microscopic parasites of the skin. These mites gregg through the skin, causing severe itching. The mite can be spread to other persons by skin contact. All clothing, towels, and bedding should be washed in very hot water, set aside for a week, then washed again. You should apply scabies-killing lotion from the neck down, then wash it off after 12 hours. You may need medication for itching, as the itch persists for many days after the mites have been killed. All family members and close personal contacts should be examined. Repeat treatment may be necessary if the infestation is not eliminated with a single treatment. Call the doctor if you develop increasing swelling and redness, red streaks, tender lumps, fever, or drainage from a skin sore. Diphenhydramine The use of diphenhydramine (Benadryl) has been recommended to control allergic symptoms. The 25 mg strength is available over- the-counter, as well as the elixir. This antihistamine is used for many symptoms. It's useful for itching, watering eyes and nose, allergic swelling, hives, and insect stings. The medication can be repeated four times daily. Age Elixir (12.5 mg/tsp) 25 mg pill 1 yr 1/4 tsp 2-3 yr 1/2 tsp 4-8 yr 1 tsp 9-14 yr 2 tsp one tab adult 1-2 tabs Antihistamines may cause drowsiness, especially with the first dose. Do not operate machinery or drive while under the effects of the medication. Do not combine the medication with alcohol, or with any other medication without talking to your doctor. FOLLOW-UP CARE: If you have been referred to a physician for follow-up care, call the physicians office for an appointment as you were instructed or within the next two days. If you experience worsening or a significant change in your symptoms, notify the physician immediately or return to the Emergency Department at any time for re-evaluation. Prescriptions: Permethrin [Elimite] 60 gm TP ONCE PRN #60 cream.gm. PRN Reason:
== END 2019-05-23 21:57 | disposition home or self-care (01) ==
LOC: ER 19:05
DX: B86 Scabies (principal)

== ENCOUNTER 2019-11-21 17:58 | Emergency (ER) | payer SELFPAY ==
[2019-11-21 18:04] VITALS: BP 133/64
[2019-11-21] MEDS ORDERED: KETOROLAC TROMETHAMINE 60 MG/2 ML SDV IM ONE (18:41)
--- NOTE | 2019-11-21 19:13 | RADIOLOGY REPORT (SQ) ---
EXAM DESCRIPTION: KNEE LEFT 4 VIEW COMPLETED DATE/TIME: 11/21/2019 5:50 pm REASON FOR STUDY: left knee pain/swelling COMPARISON: None. NUMBER OF VIEWS: Four views. TECHNIQUE: AP, lateral, and both oblique radiographic images acquired of the left knee. LIMITATIONS: None. FINDINGS: MINERALIZATION: Normal. BONES: No acute fracture or dislocation. No worrisome bone lesions. JOINT: Moderate joint effusion. No intra-articular loose body. SOFT TISSUES: No soft tissue swelling. No radio-opaque foreign body. OTHER: No other significant finding. IMPRESSION: Moderate joint effusion. No acute fracture or dislocation. TECHNICAL DOCUMENTATION: JOB ID: [id number] 2010 [employer]- All Rights Reserved Reading location - IP/workstation name: [email or web address]
--- NOTE | 2019-11-21 19:54 | ER Document Report ---
HPI - HPI Time Seen by Provider: 11/21/19 18:35 Pain Level: 2 Notes: Otherwise healthy 24-year-old female presenting to the emergency department chief complaint of possible knee injury. Patient reports 2 nights ago she twisted her knee when getting out of a truck and felt like it popped out of place and then popped back in. Patient reports it is very swollen. She reports she has been able to bear weight on it but she has not been able to bend it. - REPRODUCTIVE LMP: 11/14/19 Reproductive: DENIES: : - MUSCULOSKELETAL Musculoskeletal: REPORTS: Extremity pain - left knee Past Medical History - General Information source: Patient - Social History Smoking Status: Current Some Day Smoker Chew tobacco use (# tins/day): No Frequency of alcohol use: Social Drug Abuse: None Family History: Reviewed & Not Pertinent Patient has suicidal ideation: No Patient has homicidal ideation: No Renal/ Medical History: Denies: Hx Peritoneal Dialysis Psychiatric Medical History: Reports: Hx Anxiety - panic attacks Traumatic Medical History: Reports: Hx Fractures - nose - Immunizations Immunizations up to date: Yes Hx Diphtheria, Pertussis, Tetanus Vaccination: Yes Vertical Provider Document - CONSTITUTIONAL Notes: PHYSICAL EXAMINATION: GENERAL: Well-appearing, well-nourished and in no acute distress. HEAD: Atraumatic, normocephalic. EYES: Pupils equal round extraocular movements intact, conjunctiva are normal. ENT: Nares patent NECK: Normal range of motion LUNGS: No respiratory distress Musculoskeletal: Limited range of motion to left knee. Tenderness to palpation over anterior medial and lateral knee. No crepitus or deformity on palpation. Strong dorsalis pedis pulse. NEUROLOGICAL: Normal speech, normal gait. PSYCH: Normal mood, normal affect. SKIN: Warm, Dry, normal turgor, no rashes or lesions noted. - INFECTION CONTROL TRAVEL OUTSIDE OF THE [place] IN LAST 30 DAYS: No Course - Re-evaluation Re-evalutation: Knee X-Ray 11/21/19 18:41 IMPRESSION: Moderate joint effusion. No acute fracture or dislocation. - Vital Signs Vital signs: Temp Pulse Resp BP Pulse Ox 98.0 F 102 H 16 133/64 H 98 11/21/19 18:04 11/21/19 18:04 11/21/19 18:04 11/21/19 18:04 11/21/19 18:04 Procedures - Immobilization LEFT KNEE Pre-Proc Neuro Vasc Exam: Normal Immobilizer type: Crutches, Knee immobilizer Performed by: PCT Post-Proc Neuro Vasc Exam: Normal Discharge - Discharge Clinical Impression: Left knee sprain Qualifiers: Encounter type: sequela Involved ligament of knee: unspecified ligament Qualified Code(s): S83.92XS - Sprain of unspecified site of left knee, sequela Condition: Stable Disposition: HOME, SELF-CARE Instructions: Sprained Knee (OM) Additional Instructions: The x-ray was negative. Please use the knee immobilizer and crutches. Take ibuprofen 600 mg every 6 hours. Ice and elevate your knee. Follow-up with orthopedics if not improving over the next 7 to 10 days. Forms: Return to Work Referrals: CUCA KAMARA DO [ACTIVE STAFF] - Follow up as needed
== END 2019-11-21 21:00 | disposition home or self-care (01) ==
LOC: ER 17:58
DX: S83.92XA Sprain of unspecified site of left knee, initial encounter (principal); X50.0XXA Overexertion from strenuous movement or load, initial encounter; Y93.89 Activity, other specified; F17.200 Nicotine dependence, unspecified, uncomplicated
CPT/HCPCS: 99283; 96372; 73564; J1885